=== PATIENT | female | born 1955 | race Caucasian/White ===

== ENCOUNTER 2019-09-07 16:15 | Emergency (ER) | payer MEDICAID, OTHER ==
[2019-09-07] MEDS ORDERED: Diphtheria,Pertussis(Acell),Tetanus Vaccine 0.5 ML SDV IM ONE (17:00)
[2019-09-07] MEDS ORDERED: Amoxicillin/Clavulanate K 875-125 MG Tab PO ONE (17:00)
--- NOTE | 2019-09-07 17:06 | EDM.PDOC ---
ED HPI GENERAL MEDICAL PROBLEM - General Chief Complaint: Laceration Stated Complaint: CRUSHED FINGER Time Seen by Provider: 09/07/19 16:20 Source of Information: Reports: Patient History Limitations: Reports: No Limitations - History of Present Illness INITIAL COMMENTS - FREE TEXT/NARRATIVE: c/o finger lac pt from [facility], then [place], then moved here for work. works at [employer] x 1.5m, lives with her dtr who is disabled finger got caught in a pipe wrench last Td unknwon good ROM of finger takes no meds, no medical problems Treatments INDUSTRIAL INSULATOR: Reports: Other (see below) Other Treatments INDUSTRIAL INSULATOR: coban Left Finger-Ring Pain Score (Numeric/FACES): 4 - Related Data Allergies Allergy/AdvReac Type Severity Reaction Status Date / Time No Known Allergies Allergy Verified 09/07/19 16:34 Home Meds: Home Meds Amoxicillin/Clavulanate K [Augmentin 875-125 MG] 1 tab PO BID #6 tablet 09/07/19 [Rx] Past Medical History - Past Health History Medical/Surgical History: Denies Medical/Surgical History Social & Family History - Tobacco Use Smoking Status *Q: Current Every Day Smoker Years of Tobacco use: 40 Packs/Tins Daily: 0.5 ED ROS GENERAL - Review of Systems Review Of Systems: See Below Constitutional: Reports: No Symptoms HEENT: Reports: No Symptoms Respiratory: Reports: No Symptoms Cardiovascular: Reports: No Symptoms Endocrine: Reports: No Symptoms GI/Abdominal: Reports: No Symptoms : Reports: No Symptoms Musculoskeletal: Reports: Other (finger pain) Skin: Reports: Wound Neurological: Reports: No Symptoms Psychiatric: Reports: No Symptoms Hematologic/Lymphatic: Reports: No Symptoms Immunologic: Reports: No Symptoms ED EXAM, SKIN/RASH Exam: See Below Exam Limited By: No Limitations General Appearance: Alert, WD/WN, No Apparent Distress Respiratory/Chest: No Respiratory Distress Cardiovascular: Regular Rate, Rhythm Extremities: Other (left index finger with 3 cm lac on the palmar aspect, across the DIP, the muscle is disrupted and the flex tendon is visible and uninjured and intact, no fb, curvilinear, good flex/ext all joints, LT intact, base cleaned with betadine swab x 10, alc prep x 4, 1% lido without epi with #27 needle used for digit block with complete analgesia, margins closed with 4-0 Ethilon interrupted x 6, good apposition of edges, should heal with minimal eschar) Course - Orders/Labs/Meds Orders: Active Orders 24 hr Category Date Time Status Vaccines to be Administered [RC] PER UNIT ROUTINE Care 09/07/19 17:01 Ordered Amoxicillin/Clavulanate K [Augmentin 875 MG/125 MG] Med 09/07/19 17:00 Once 1 tab PO ONETIME ONE Diphth,Pertuss(Acell),Tet Vac [Adacel] Med 09/07/19 17:00 Once 0.5 ml IM .ONCE ONE - Re-Assessments/Exams Free Text/Narrative Re-Assessment/Exam: 09/07/19 17:09 drsg and finger splint applied, Tdap given, WSI form completed Departure - Departure Time of Disposition: 17:01 Disposition: Home, Self-Care 01 Condition: Good Clinical Impression: Laceration of ring finger - Discharge Information *PRESCRIPTION DRUG MONITORING PROGRAM REVIEWED*: Not Applicable *COPY OF PRESCRIPTION DRUG MONITORING REPORT IN PATIENT PHONG: Not Applicable Prescriptions: Amoxicillin/Clavulanate K [Augmentin 875-125 MG] 1 tab PO BID #6 tablet Instructions: Laceration Care, Adult Referrals: PCP,None [Primary Care Provider] - Additional Instructions: Keep clean and dry and covered with a dressing and finger splint. Change dressing every 1-2 days. May leave open to air for 30-45 minutes when changing dressing. To decrease risk of infection, take amoxicillin/clavulanate 865/125 mg 1 tab 2 times a day for 3 days. For pain, take ibuprofen 200 mg 4 tabs 3 times a day for 2 days, longer if needed. May work. However, do not use your finger or put weight or pressure on your finger. See your doctor in 7 days to remove sutures. However, see a doctor the same day for any increase in redness, swelling, pain, warmth, fever or drainage. - My Orders Last 24 Hours: My Active Orders 09/07/19 17:00 Amoxicillin/Clavulanate K [Augmentin 875 MG/125 MG] 1 tab PO ONETIME ONE Diphth,Pertuss(Acell),Tet Vac [Adacel] 0.5 ml IM .ONCE ONE 09/07/19 17:01 Vaccines to be Administered [RC] PER UNIT ROUTINE - Assessment/Plan Last 24 Hours: My Active Orders 09/07/19 17:00 Amoxicillin/Clavulanate K [Augmentin 875 MG/125 MG] 1 tab PO ONETIME ONE Diphth,Pertuss(Acell),Tet Vac [Adacel] 0.5 ml IM .ONCE ONE 09/07/19 17:01 Vaccines to be Administered [RC] PER UNIT ROUTINE
== END 2019-09-07 17:40 | disposition home or self-care (01) ==
LOC: FB.ED 16:15
DX: S61.211A Laceration without foreign body of left index finger without damage to nail, initial encounter (principal); F17.210 Nicotine dependence, cigarettes, uncomplicated; W23.0XXA Caught, crushed, jammed, or pinched between moving objects, initial encounter
CPT/HCPCS: 12002; 90471; 90715; 99282; 99283; A9270